=== PATIENT | male | born 1990 | race African-American/Black ===

== ENCOUNTER 2016-05-25 15:30 | Emergency (ER) | payer OTHER ==
[~2016-05-25 15:30] MED LIST: FLUO20CA9 PO; MELO7.5S PO; TRAZO50TA PO
[2016-05-25 16:56] LABS: MEAN CORPUSCULAR HEMOGLOBIN 30.4 pg (27.0-33.0); MEAN CORPUSCULAR HGB CONC 33.6 g/dl (32.0-36.5); MEAN CORPUSCULAR VOLUME 90.4 fl (80.0-96.0); RED CELL DISTRIBUTION WIDTH 12.6 % (11.5-14.5); WHITE BLOOD COUNT 4.7 K/mm3 (4.0-10.0)
[2016-05-25 17:11] LABS: ALBUMIN 3.8 GM/DL (3.2-5.2); ALBUMIN/GLOBULIN RATIO 1.23 (1.00-1.93); ALKALINE PHOSPHATASE 76 U/L (45-117); ALT/SGPT 38 U/L (12-78); ANION GAP 6 MEQ/L (8-16); AST/SGOT 16 U/L (15-37); BILIRUBIN,DIRECT < 0.1 MG/DL (0.0-0.2); BILIRUBIN,TOTAL 0.2 MG/DL (0.2-1.0); BLOOD UREA NITROGEN 10 MG/DL (7-18); CALCIUM LEVEL 8.7 MG/DL (8.5-10.1); CARBON DIOXIDE LEVEL 31 MEQ/L (21-32); CHLORIDE LEVEL 107 MEQ/L (98-107); CREATININE FOR GFR 0.88 MG/DL (0.70-1.30); GLOMERULAR FILTRATION RATE > 60.0 (>60); GLUCOSE, FASTING 91 MG/DL (70-105); SODIUM LEVEL 144 MEQ/L (136-145); TOTAL PROTEIN 6.9 GM/DL (6.4-8.2)
[2016-05-25 17:13] LABS: AMPHETAMINES LEVEL URINE NEGATIVE (NEGATIVE); BENZODIAZEPINES URINE NEGATIVE (NEGATIVE); COCAINE METABOLITE URINE NEGATIVE (NEGATIVE); CONTROL LINE INT CTR LINE PRESENT; METHADONE URINE NEGATIVE (NEGATIVE); OPIATES URINE NEGATIVE (NEGATIVE); TRICYCLIC ANTIDEPRESS URINE NEGATIVE (NEGATIVE)
--- NOTE | 2016-05-25 18:24 | EDDOCDS ---
Nurse's Notes [facility] Name: Colt Ricardo Age: 25 yrs Sex: Male : 1990 Arrival Date: 05/25/2016 Time: 15:30 Bed [facility] Private MD: MDEmperatriz HENDRIX Diagnosis: Adjustment disorder with disturbance of conduct Presentation: 05/25 15:35 Presenting complaint: Patient states: suicidal thoughts for years worsens with stress. srm stress in general brings it on. Mental Health Triage Level: Level 2: The patient displays active suicidal ideations. Adult Sepsis Screening: The patient does not have new or worsening altered mentation. Patient's respiratory rate is less than 22. Systolic blood pressure is greater than 100. Patient has a qSOFA score of 0- Negative Sepsis Screen. Suicide/Homicide risk assessment- The patient admits to and/or has been reported to be having suicidal ideations. The patient reports that he/she has not been admitted to an inpatient mental health facility in the last 30 days. The patient reports that he/she does not have a recent or current history of substance abuse. The patient reports that he/she has a prior history of suicide attempt and/or organized plan. The patient reports that he/she has experienced a significant life altering event in the last 30 days. 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 Transition of care: patient was not received from another setting of care. 15:35 Acuity: NAVA Level 3 srm 15:35 Method Of Arrival: Walkin/Carried/Asstd srm 15:38 Red Flag criteria, patient assessed and taken directly to a bed. [facility] Triage Assessment: 15:37 General: Appears in no apparent distress, Behavior is appropriate for age, cooperative. srm Pain: Location: chronic left shoulderpain Pain currently is 5 out of 10 on a pain scale. HIV screening NA for this visit Offered previously. Historical: - Allergies: no known allergies; - Home Meds: 1. Prozac Unknown Oral ran out 1-2 days ago 2. Nexium Unknown Oral once daily - PMHx: Depression; left shoulder pain; GERD; - PSHx: left shoulder; - Social history: Smoking status: Patient uses tobacco products, current some day smoker. No barriers to communication noted, The patient speaks fluent Mauritian, Speaks appropriately for age. - Family history: No immediate family members are acutely ill. - : The pt / caregiver states he / she is not on anticoagulants. Home medication list is obtained from the patient. - Exposure Risk Screening:: None identified. Screenin:42 Screening information is obtained from the patient. Fall risk: No risks identified. mb9 Assistance ADL's: requires no assistance with activities of daily living. Abuse/DV Screen: The patient / caregiver reports he/she is: not in a situation that causes fear, pain or injury. Nutritional screening: No deficits noted. Advance Directives: There is no active DNR order. home support is adequate. Assessment: 15:42 General: Appears in no apparent distress, Behavior is appropriate for age, cooperative, mb9 pt states, "Caroline been depressed and stressed out lately and I'm having suicidal thoughts". pt denies a plan. pt reports a previous suicide attempt with an overdose of pills. pt reports multiple stressors. 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 . Pain: Denies pain. Respiratory: Airway is patent Respiratory effort is even, unlabored, Breath sounds are clear bilaterally. 16:45 Reassessment: Patient appears in no apparent distress at this time. General: Behavior mb9 is appropriate for age, cooperative. General: security observing. . Pain: Denies pain. 18:22 Reassessment: Patient appears in no apparent distress at this time. General: Appears in mb9 no apparent distress, Behavior is appropriate for age, cooperative. Pain: Denies pain. Respiratory: Airway is patent Respiratory effort is even, unlabored. 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 [facility] Behavioral Health: The patient is not an established patient of [facility] Behavioral Health. 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 The patient was referred for evaluation because stress related to his impending separation & what he describes as his unit 'giving him problems'. Subjective: The patients chief complaint is "Just a lot of stress right now. I had some suicidal thoughts earlier, but nothing I was planning or anything like that". Delusions are denied. Patient's mood is dysphoric. Hallucinations are denied. Patient reports having a 4 year h/o service, with no combat exposure. He states that he spent a year in [place] & 6 months in [place], both of which were enjoyable. 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 He states that he has appointments to complete, as well as final college courses between now & then, however his unit suddenly told him that he was going to have CQ Duty x 24 hours today. He describes feeling like his unit is creating problems (such as the CQ Duty) for him & has been doing so for a couple of months, as his ETA has approached. He used the example of his being refused leave to go home over [place] to see his 4 y/o daughter, which angered his daughter's mother. He states that she is still angry with his for missing [place] with the child again. He says that he has "Just been feeling stressed about all of this" over the last couple of weeks, along with some fleeting SI earlier today. He denies having any SI now & has been future oriented throughout the interview. He denies having any plan or intent earlier, when the thoughts were briefly present. 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 His escort has confirmed that if D/C, there will be staff to check on him frequently throughout the weekend & will arrange for his follow up on Friday. Mental Health history: depression, sleep disturbance, suicide gesture by ibuprofen ingesting, shortly after enlisting in 2012 Mental Health Admissions: 2012 (? location) & 2016: [facility] Current Outpatient Mental Health Services: Patient states that he cleared from [facility] a week ago. Current living environment is The patient currently lives in a [facility]. Patient presents to Emergency Department with the following symptoms within the past 2 weeks: depressed mood, relational problem, sleep disturbance - erratic suicidal ideation with no plan. Mental status exam: Patients appearance is appropriate, Patient's behavior is cooperative, Speech is normal. Affect is restricted. Mood is dysphoric. Hallucinations are denied. Appetite is normal. Memory is good. Energy level is normal. Content of thought is normal. Thought process is intact. Cognitive level is oriented to person, place, time and situation Patient's insight is good. Judgement is good. Rapport with interviewer is good. Suicidal Ideation is denied. Homicidal ideation is denied. Disposition: Medically cleared for disposition by Lexii Campbell MD Psychiatric Consult is deferred per ED physician, Dr Mendenhall. The patient has a safe destination which is back to [place] with [facility]. [facility] Admission Criteria: Not Applicable. Vital Signs: 15:32 BP 172 / 95; Pulse 91; Resp 18 S; Temp 99.0(O); Pulse Ox 100% on R/A; Weight 86.18 kg gr2 (R); Height 5 ft. 8 in. (172.72 cm) (R); Pain 0/10; 18:22 BP 142 / 94; Pulse 69; Resp 18; Temp 97.3; Pulse Ox 100% ; mb9 15:32 Body Mass Index 28.89 (86.18 kg, 172.72 cm) gr2 Vitals: 15:32 Log In Time: May 25, 2016 at 15:32. RN notified that patient meets Red Flag gr2 criteria. ED Course: 15:32 Patient visited by Francisca Kearney. gr2 15:32 [facility] is Private Physician. gr2 15:32 Patient moved to Waiting gr2 15:34 Patient visited by Francisca Kearney. gr2 15:36 Triage Initiated srm 15:38 Patient moved to [facility] srm 15:42 The patient / caregiver is instructed regarding the plan of care and ED course. Patient mb9 has correct armband on for positive identification. Placed in psych safe attire. transportation worker with pt. 15:48 Patient visited by Jef Bolanos. dpm 15:49 Pt greeted and oriented to ED. Patient advised of names of staff involved in care, dpm location of call zendejas, wait times and NPO status. Security observing. Property removed, inventory done, secured in belongings bag- placed in locked locker. Placed in locker 3. Psych Safety Check: Location: Psych Room. Visual Assessment: Cooperative. 16:05 Patient visited by Jef Bolanos. dpm 16:17 Patient visited by Jef Bolanos. dpm 16:22 Lexii Campbell MD is Attending Physician. sd1 16:22 Patient visited by Lexii Campbell MD. sd1 16:33 Patient visited by Jef Bolanos. dpm 16:45 Patient visited by Jef Bolanos. dpm 16:56 [facility] Payment Agreement was scanned into [employer] and attached to record. gb 16:56 Drug Eval Toxicology ED Only Sent. dpm 17:00 Patient visited by Jef Bolanos. dpm 17:14 Patient visited by Jef Bolanos. dpm 17:21 Patient visited by Sharif Eaton PSA. jl 17:29 Patient visited by Jef Bolanos. dpm 17:35 [facility] is Referral Physician. sd1 17:42 Patient visited by Jef Bolanos. dpm 17:57 Patient visited by Jef Bolanos. dpm 18:22 No IV's were initiated during this patient's visit. No procedures done that require mb9 assistance. Order Results: Lab Order: Acetaminophen Level; SPEC'M 05/25/16 16:32 Test: ACETAMINOPHEN LEVEL; Value: < 2.0; Range: 10.0-30.0; Abnormal: Below low normal; Units: UG/ML; Status: F Lab Order: Basic Metabolic Profile; SPEC'M 05/25/16 16:32 Test: GLUCOSE, FASTING; Value: 91; Range: 70-105; Units: MG/DL; Status: F Test: BLOOD UREA NITROGEN; Value: 10; Range: 7-18; Units: MG/DL; Status: F Test: CREATININE FOR GFR; Value: 0.88; Range: 0.70-1.30; Units: MG/DL; Status: F Test: GLOMERULAR FILTRATION RATE; Value: > 60.0; Range: >60; Status: F Test: SODIUM LEVEL; Value: 144; Range: 136-145; Units: MEQ/L; Status: F Test: POTASSIUM SERUM; Value: 4.0; Range: 3.5-5.1; Units: MEQ/L; Status: F Test: CHLORIDE LEVEL; Value: 107; Range: 98-107; Units: MEQ/L; Status: F Test: CARBON DIOXIDE LEVEL; Value: 31; Range: 21-32; Units: MEQ/L; Status: F Test: ANION GAP; Value: 6; Range: 8-16; Abnormal: Below low normal; Units: MEQ/L; Status: F Test: CALCIUM LEVEL; Value: 8.7; Range: 8.5-10.1; Units: MG/DL; Status: F Test Note: ; Units are mL/min/1.73 m2 Chronic Kidney Disease Staging per NKF: Stage I & II GFR >=60 Normal to Mildly Decreased Stage III GFR 30-59 Moderately Decreased Stage IV GFR 15-29 Severely Decreased Stage V GFR <15 Very Little GFR Left ESRD GFR <15 on CHECK SCALER Lab Order: Complete Blood Count; SPEC'M 05/25/16 16:32 Test: WHITE BLOOD COUNT; Value: 4.7; Range: 4.0-10.0; Units: K/mm3; Status: F Test: RED BLOOD COUNT; Value: 4.72; Range: 4.30-6.10; Units: M/mm3; Status: F Test: HEMOGLOBIN; Value: 14.4; Range: 14.0-18.0; Units: g/dl; Status: F Test: HEMATOCRIT; Value: 42.7; Range: 42.0-52.0; Units: %; Status: F Test: MEAN CORPUSCULAR VOLUME; Value: 90.4; Range: 80.0-96.0; Units: fl; Status: F Test: MEAN CORPUSCULAR HEMOGLOBIN; Value: 30.4; Range: 27.0-33.0; Units: pg; Status: F Test: MEAN CORPUSCULAR HGB CONC; Value: 33.6; Range: 32.0-36.5; Units: g/dl; Status: F Test: RED CELL DISTRIBUTION WIDTH; Value: 12.6; Range: 11.5-14.5; Units: %; Status: F Test: PLATELET COUNT, AUTOMATED; Value: 238; Range: 150-450; Units: k/mm3; Status: F Lab Order: Drug Eval Toxicology ED Only; SPEC'05/25/16 16:52 Test: AMPHETAMINES LEVEL URINE; Value: NEGATIVE; Range: NEGATIVE; Status: F Test: BARBITURATES URINE; Value: NEGATIVE; Range: NEGATIVE; Status: F Test: BENZODIAZEPINES URINE; Value: NEGATIVE; Range: NEGATIVE; Status: F Test: CANNABINOIDS URINE; Value: POSITIVE; Range: NEGATIVE; Abnormal: Above high normal; Status: F Test: COCAINE METABOLITE URINE; Value: NEGATIVE; Range: NEGATIVE; Status: F Test: METHADONE URINE; Value: NEGATIVE; Range: NEGATIVE; Status: F Test: OPIATES URINE; Value: NEGATIVE; Range: NEGATIVE; Status: F Test: TRICYCLIC ANTIDEPRESS URINE; Value: NEGATIVE; Range: NEGATIVE; Status: F Test Note: ; FALSE POSITIVE RESULTS CAN BE CAUSED BY THE USE OF PANTOPRAZOLE (PROTONIX). Lab Order: Ethyl Alcohol (ethanol); [facility] 05/25/16 16:32 Test: ETHYL ALCOHOL (ETHANOL); Value: < 0.003; Range: 0.000-0.010; Units: %; Status: F Lab Order: Liver Profile; [facility] 05/25/16 16:32 Test: AST/SGOT; Value: 16; Range: 15-37; Units: U/L; Status: F Test: ALT/SGPT; Value: 38; Range: 12-78; Units: U/L; Status: F Test: ALKALINE PHOSPHATASE; Value: 76; Range: 45-117; Units: U/L; Status: F Test: BILIRUBIN,TOTAL; Value: 0.2; Range: 0.2-1.0; Units: MG/DL; Status: F Test: BILIRUBIN,DIRECT; Value: < 0.1; Range: 0.0-0.2; Units: MG/DL; Status: F Test: TOTAL PROTEIN; Value: 6.9; Range: 6.4-8.2; Units: GM/DL; Status: F Test: ALBUMIN; Value: 3.8; Range: 3.2-5.2; Units: GM/DL; Status: F Test: ALBUMIN/GLOBULIN RATIO; Value: 1.23; Range: 1.00-1.93; Status: F Lab Order: Salicylate Level; [facility] 05/25/16 16:32 Test: SALICYLATE LEVEL; Value: < 1.7; Range: 5.0-30.0; Abnormal: Below low normal; Units: MG/DL; Status: F Lab Order: Thyroid Stimulating Hormone; [facility] 05/25/16 16:32 Test: THYROID STIMULATING HORMONE; Value: 0.426; Range: 0.358-3.740; Units: uIU/ML; Status: F Outcome: 17:36 Discharge ordered by Provider. sd1 18:22 Discharge Assessment: Patient awake, alert and oriented x 3. No cognitive and/or mb9 functional deficits noted. Patient verbalized understanding of disposition instructions. patient administered narcotics - no. The following High Risk Discharge criteria are identified: None. Discharged to home ambulatory. Condition: good Condition: stable Condition: improved. Discharge instructions given to patient, Instructed on discharge instructions, Demonstrated understanding of instructions, Pt was receptive of discharge instructions/ teaching. No special radiology studies were completed. 18:23 Patient left the ED. mb9 Signatures: Lexii Campbell MD MD sd1 Delmy Cadena, RN RN srm Uma, Sharif, PSA PSA jl Lyla Giraldo, Reg Reg Jef Rogers dpm, [place] 2 Ryan Butcher,RN RN mb9 MTDGeovanny
--- NOTE | 2016-05-25 18:24 | EDDOCDS ---
Physician Documentation [facility] Name: Colt Ricardo Age: 25 yrs Sex: Male : 1990 Arrival Date: 05/25/2016 Time: 15:30 Bed [facility] Private MD: Emperatriz JUAREZ Disposition: 05/25/16 17:36 Discharged to Home/Self Care. Impression: Adjustment disorder with disturbance of conduct. - Condition is Stable. - Discharge Instructions: Adjustment Disorder. - Medication Reconciliation, Local Pharmacy Hours form. - Follow up: Emperatriz Abdi, Behavioral Health; When: Friday. - Problem is new. - Symptoms have improved. Historical: - Allergies: no known allergies; - Home Meds: 1. Prozac Unknown Oral ran out 1-2 days ago 2. Nexium Unknown Oral once daily - PMHx: Depression; left shoulder pain; GERD; - PSHx: left shoulder; - Social history: Smoking status: Patient uses tobacco products, current some day smoker. No barriers to communication noted, The patient speaks fluent Tajik, Speaks appropriately for age. - Family history: No immediate family members are acutely ill. - : The pt / caregiver states he / she is not on anticoagulants. Home medication list is obtained from the patient. - Exposure Risk Screening:: None identified. Vital Signs: 05/25 15:32 BP 172 / 95; Pulse 91; Resp 18 S; Temp 99.0(O); Pulse Ox 100% on R/A; Weight 86.18 kg / gr2 189.99 lbs (R); Height 5 ft. 8 in. (172.72 cm) (R); Pain 0/10; 18:22 BP 142 / 94; Pulse 69; Resp 18; Temp 97.3; Pulse Ox 100% ; mb9 15:32 Body Mass Index 28.89 (86.18 kg, 172.72 cm) gr2 MDM: 15:47 REGULAR DIET PLASTIC MORALES+DIET ordered. EDMS 16:09 Consult PFS/PSA/Technologist Infectious Disease ordered. sd1 16:09 Consult PFS/PSA/Technologist Infectious Disease: Patient's case requires discussion with on-call sd1 Psychiatrist ordered. 16:09 PSA/PFS to call Nursing Managed Care Provider, to enter patient data on [place] Safe Act if patient sd1 involuntarily admitted or transferred for SI or HI ordered. 16:09 Confirm accurate psychiatric medication list and times of last dosage ordered. sd1 16:09 Detain Pt Until Medically/PFS Cleared ordered. sd1 16:09 Acetaminophen Level Ordered. EDMS 16:09 Basic Metabolic Profile Ordered. EDMS 16:09 Complete Blood Count Ordered. EDMS 16:09 Drug Eval Toxicology ED Only Ordered. EDMS 16:09 Ethyl Alcohol (ethanol) Ordered. EDMS 16:09 Liver Profile Ordered. EDMS 16:09 Salicylate Level Ordered. EDMS 16:09 Thyroid Stimulating Hormone Ordered. EDMS 16:55 Financial registration complete. gb 16:56 [facility] Payment Agreement was scanned into [employer] and attached to record. gb 17:14 Acetaminophen Level Reviewed. sd1 17:14 Basic Metabolic Profile Reviewed. sd1 17:14 Drug Eval Toxicology ED Only Reviewed. sd1 17:14 Salicylate Level Reviewed. sd1 17:14 Complete Blood Count Reviewed. sd1 17:14 Ethyl Alcohol (ethanol) Reviewed. sd1 17:14 Liver Profile Reviewed. sd1 17:14 Thyroid Stimulating Hormone Reviewed. sd1 Signatures: Dispatcher [employer] EDDE Lexii Campbell MD MD sd1 Delmy Cadena, RN RN srm Lyla Giraldo, Reg Reg gb Ryan Butcher,RN RN mb9 The chart was reviewed and I authenticate all verbal orders and agree with the evaluation and treatment provided.Attachments: 16:56 [facility] Payment Agreement gb MTDD
--- NOTE | 2016-05-27 19:25 | EDDOCDS ---
Physician Documentation [facility] Name: Colt Ricardo Age: 25 yrs Sex: Male : 1990 Arrival Date: 05/25/2016 Time: 15:30 Bed [facility] Private MD: Emperatriz JUAREZ Disposition: 05/25/16 17:36 Discharged to Home/Self Care. Impression: Adjustment disorder with disturbance of conduct. - Condition is Stable. - Discharge Instructions: Adjustment Disorder. - Medication Reconciliation, Local Pharmacy Hours form. - Follow up: Emperatriz Abdi, Behavioral Health; When: Friday. - Problem is new. - Symptoms have improved. Historical: - Allergies: no known allergies; - Home Meds: 1. Prozac Unknown Oral ran out 1-2 days ago 2. Nexium Unknown Oral once daily - PMHx: Depression; left shoulder pain; GERD; - PSHx: left shoulder; - Social history: Smoking status: Patient uses tobacco products, current some day smoker. No barriers to communication noted, The patient speaks fluent Kinyarwanda, Speaks appropriately for age. - Family history: No immediate family members are acutely ill. - : The pt / caregiver states he / she is not on anticoagulants. Home medication list is obtained from the patient. - Exposure Risk Screening:: None identified. Vital Signs: 05/25 15:32 BP 172 / 95; Pulse 91; Resp 18 S; Temp 99.0(O); Pulse Ox 100% on R/A; Weight 86.18 kg / gr2 189.99 lbs (R); Height 5 ft. 8 in. (172.72 cm) (R); Pain 0/10; 18:22 BP 142 / 94; Pulse 69; Resp 18; Temp 97.3; Pulse Ox 100% ; mb9 15:32 Body Mass Index 28.89 (86.18 kg, 172.72 cm) gr2 MDM: 15:47 REGULAR DIET PLASTIC MORALES+DIET ordered. EDMS 16:09 Consult PFS/PSA/Float Operator ordered. sd1 16:09 Consult PFS/PSA/Float Operator: Patient's case requires discussion with on-call sd1 Psychiatrist ordered. 16:09 PSA/PFS to call Nursing Popcorn Vendor, to enter patient data [place] Safe Act if patient sd1 involuntarily admitted or transferred for SI or HI ordered. 16:09 Confirm accurate psychiatric medication list and times of last dosage ordered. sd1 16:09 Detain Pt Until Medically/PFS Cleared ordered. sd1 16:09 Acetaminophen Level Ordered. EDMS 16:09 Basic Metabolic Profile Ordered. EDMS 16:09 Complete Blood Count Ordered. EDMS 16:09 Drug Eval Toxicology ED Only Ordered. EDMS 16:09 Ethyl Alcohol (ethanol) Ordered. EDMS 16:09 Liver Profile Ordered. EDMS 16:09 Salicylate Level Ordered. EDMS 16:09 Thyroid Stimulating Hormone Ordered. EDMS 16:55 Financial registration complete. gb 16:56 [facility] Payment Agreement was scanned into [facility] and attached to record. gb 17:14 Acetaminophen Level Reviewed. sd1 17:14 Basic Metabolic Profile Reviewed. sd1 17:14 Drug Eval Toxicology ED Only Reviewed. sd1 17:14 Salicylate Level Reviewed. sd1 17:14 Complete Blood Count Reviewed. sd1 17:14 Ethyl Alcohol (ethanol) Reviewed. sd1 17:14 Liver Profile Reviewed. sd1 17:14 Thyroid Stimulating Hormone Reviewed. sd1 05/26 12:50 T-Sheet-- Draft Copy was scanned into [facility] and attached to record. gb Signatures: Dispatcher [employer] Lexii Montoya MD MD sd1 Delmy Cadena, RN RN [facility] Lyla Giraldo, Jerry Reg gb Ryan Butcher,RN RN mb9 The chart was reviewed and I authenticate all verbal orders and agree with the evaluation and treatment provided.Attachments: 05/25 16:56 [facility] Payment Agreement gb 05/26 12:50 T-Sheet-- Draft Copy gb Chart Complete MTDD
--- NOTE | 2016-05-27 19:25 | EDDOCDS ---
Physician Documentation [facility] Name: Colt Ricardo Age: 25 yrs Sex: Male : 1990 Arrival Date: 05/25/2016 Time: 15:[address] [facility] Private MD: Emperatriz JUAREZ Disposition: 05/25/16 17:36 Discharged to Home/Self Care. Impression: Adjustment disorder with disturbance of conduct. - Condition is Stable. - Discharge Instructions: Adjustment Disorder. - Medication Reconciliation, Local Pharmacy Hours form. - Follow up: Emperatriz Abdi, Behavioral Health; When: Friday. - Problem is new. - Symptoms have improved. Historical: - Allergies: no known allergies; - Home Meds: 1. Prozac Unknown Oral ran out 1-2 days ago 2. Nexium Unknown Oral once daily - PMHx: Depression; left shoulder pain; GERD; - PSHx: left shoulder; - Social history: Smoking status: Patient uses tobacco products, current some day smoker. No barriers to communication noted, The patient speaks fluent Divehi, Speaks appropriately for age. - Family history: No immediate family members are acutely ill. - : The pt / caregiver states he / she is not on anticoagulants. Home medication list is obtained from the patient. - Exposure Risk Screening:: None identified. Vital Signs: 05/25 15:32 BP 172 / 95; Pulse 91; Resp 18 S; Temp 99.0(O); Pulse Ox 100% on R/A; Weight 86.18 kg / gr2 189.99 lbs (R); Height 5 ft. 8 in. (172.72 cm) (R); Pain 0/10; 18:22 BP 142 / 94; Pulse 69; Resp 18; Temp 97.3; Pulse Ox 100% ; mb9 15:32 Body Mass Index 28.89 (86.18 kg, 172.72 cm) gr2 MDM: 15:47 REGULAR DIET PLASTIC MORALES+DIET ordered. EDMS 16:09 Consult PFS/PSA/Cylinder Honer ordered. sd1 16:09 Consult PFS/PSA/Cylinder Honer: Patient's case requires discussion with on-call sd1 Psychiatrist ordered. 16:09 PSA/PFS to call Nursing Power Saw Mechanic, to enter patient data on [place] Safe Act if patient sd1 involuntarily admitted or transferred for SI or HI ordered. 16:09 Confirm accurate psychiatric medication list and times of last dosage ordered. sd1 16:09 Detain Pt Until Medically/PFS Cleared ordered. sd1 16:09 Acetaminophen Level Ordered. EDMS 16:09 Basic Metabolic Profile Ordered. EDMS 16:09 Complete Blood Count Ordered. EDMS 16:09 Drug Eval Toxicology ED Only Ordered. EDMS 16:09 Ethyl Alcohol (ethanol) Ordered. EDMS 16:09 Liver Profile Ordered. EDMS 16:09 Salicylate Level Ordered. EDMS 16:09 Thyroid Stimulating Hormone Ordered. EDMS 16:55 Financial registration complete. gb 16:56 [facility] Payment Agreement was scanned into [employer] and attached to record. gb 17:14 Acetaminophen Level Reviewed. sd1 17:14 Basic Metabolic Profile Reviewed. sd1 17:14 Drug Eval Toxicology ED Only Reviewed. sd1 17:14 Salicylate Level Reviewed. sd1 17:14 Complete Blood Count Reviewed. sd1 17:14 Ethyl Alcohol (ethanol) Reviewed. sd1 17:14 Liver Profile Reviewed. sd1 17:14 Thyroid Stimulating Hormone Reviewed. sd1 05/26 12:50 T-Sheet-- Draft Copy was scanned into [employer] and attached to record. gb Signatures: Dispatcher [employer] Lexii Montoya MD MD sd1 Delmy Cadena, RN RN [facility] Lyla Giraldo, Jerry Reg gb Ryan Butcher,RN RN mb9 The chart was reviewed and I authenticate all verbal orders and agree with the evaluation and treatment provided.Attachments: 05/25 16:56 [facility] Payment Agreement gb 05/26 12:50 T-Sheet-- Draft Copy gb Chart Complete MTDD
--- NOTE | 2016-05-27 19:25 | EDDOCDS ---
Nurse's Notes [facility] Name: Colt Ricardo Age: 25 yrs Sex: Male : 1990 Arrival Date: 05/25/2016 Time: 15:30 Bed [facility] Private MD: TXEmperatriz HENDRIX Diagnosis: Adjustment disorder with disturbance of conduct Presentation: 05/25 15:35 Presenting complaint: Patient states: suicidal thoughts for years worsens with stress. srm stress in general brings it on. Mental Health Triage Level: Level 2: The patient displays active suicidal ideations. Adult Sepsis Screening: The patient does not have new or worsening altered mentation. Patient's respiratory rate is less than 22. Systolic blood pressure is greater than 100. Patient has a qSOFA score of 0- Negative Sepsis Screen. Suicide/Homicide risk assessment- The patient admits to and/or has been reported to be having suicidal ideations. The patient reports that he/she has not been admitted to an inpatient mental health facility in the last 30 days. The patient reports that he/she does not have a recent or current history of substance abuse. The patient reports that he/she has a prior history of suicide attempt and/or organized plan. The patient reports that he/she has experienced a significant life altering event in the last 30 days. 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 Transition of care: patient was not received from another setting of care. 15:35 Acuity: NAVA Level 3 srm 15:35 Method Of Arrival: Walkin/Carried/Asstd srm 15:38 Red Flag criteria, patient assessed and taken directly to a bed. [facility] Triage Assessment: 15:37 General: Appears in no apparent distress, Behavior is appropriate for age, cooperative. srm Pain: Location: chronic left shoulderpain Pain currently is 5 out of 10 on a pain scale. HIV screening NA for this visit Offered previously. Historical: - Allergies: no known allergies; - Home Meds: 1. Prozac Unknown Oral ran out 1-2 days ago 2. Nexium Unknown Oral once daily - PMHx: Depression; left shoulder pain; GERD; - PSHx: left shoulder; - Social history: Smoking status: Patient uses tobacco products, current some day smoker. No barriers to communication noted, The patient speaks fluent Maldivian, Speaks appropriately for age. - Family history: No immediate family members are acutely ill. - : The pt / caregiver states he / she is not on anticoagulants. Home medication list is obtained from the patient. - Exposure Risk Screening:: None identified. Screenin:42 Screening information is obtained from the patient. Fall risk: No risks identified. mb9 Assistance ADL's: requires no assistance with activities of daily living. Abuse/DV Screen: The patient / caregiver reports he/she is: not in a situation that causes fear, pain or injury. Nutritional screening: No deficits noted. Advance Directives: There is no active DNR order. home support is adequate. Assessment: 15:42 General: Appears in no apparent distress, Behavior is appropriate for age, cooperative, mb9 pt states, "Caroline been depressed and stressed out lately and I'm having suicidal thoughts". pt denies a plan. pt reports a previous suicide attempt with an overdose of pills. pt reports multiple stressors. 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 . Pain: Denies pain. Respiratory: Airway is patent Respiratory effort is even, unlabored, Breath sounds are clear bilaterally. 16:45 Reassessment: Patient appears in no apparent distress at this time. General: Behavior mb9 is appropriate for age, cooperative. General: security observing. . Pain: Denies pain. 18:22 Reassessment: Patient appears in no apparent distress at this time. General: Appears in mb9 no apparent distress, Behavior is appropriate for age, cooperative. Pain: Denies pain. Respiratory: Airway is patent Respiratory effort is even, unlabored. 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 [facility] Behavioral Health: The patient is not an established patient of [facility] Behavioral Health. 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 The patient was referred for evaluation because stress related to his impending separation & what he describes as his unit 'giving him problems'. Subjective: The patients chief complaint is "Just a lot of stress right now. I had some suicidal thoughts earlier, but nothing I was planning or anything like that". Delusions are denied. Patient's mood is dysphoric. Hallucinations are denied. Patient reports having a 4 year h/o service, with no combat exposure. He states that he spent a year in [place] & 6 months in [place], both of which were enjoyable. 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 He states that he has appointments to complete, as well as final college courses between now & then, however his unit suddenly told him that he was going to have CQ Duty x 24 hours today. He describes feeling like his unit is creating problems (such as the CQ Duty) for him & has been doing so for a couple of months, as his ETA has approached. He used the example of his being refused leave to go home over [place] to see his 4 y/o daughter, which angered his daughter's mother. He states that she is still angry with his for missing [place] with the child again. He says that he has "Just been feeling stressed about all of this" over the last couple of weeks, along with some fleeting SI earlier today. He denies having any SI now & has been future oriented throughout the interview. He denies having any plan or intent earlier, when the thoughts were briefly present. 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 His escort has confirmed that if D/C, there will be staff to check on him frequently throughout the weekend & will arrange for his follow up on Friday. Mental Health history: depression, sleep disturbance, suicide gesture by ibuprofen ingesting, shortly after enlisting in 2012 Mental Health Admissions: 2012 (? location) & 2016: [facility] Current Outpatient Mental Health Services: Patient states that he cleared from [facility] a week ago. Current living environment is The patient currently lives in a [email or web address]. Patient presents to Emergency Department with the following symptoms within the past 2 weeks: depressed mood, relational problem, sleep disturbance - erratic suicidal ideation with no plan. Mental status exam: Patients appearance is appropriate, Patient's behavior is cooperative, Speech is normal. Affect is restricted. Mood is dysphoric. Hallucinations are denied. Appetite is normal. Memory is good. Energy level is normal. Content of thought is normal. Thought process is intact. Cognitive level is oriented to person, place, time and situation Patient's insight is good. Judgement is good. Rapport with interviewer is good. Suicidal Ideation is denied. Homicidal ideation is denied. Disposition: Medically cleared for disposition by Lexii Campbell MD Psychiatric Consult is deferred per ED physician, Dr Mendenhall. The patient has a safe destination which is back to [place] [facility]. [facility] Admission Criteria: Not Applicable. Vital Signs: 15:32 BP 172 / 95; Pulse 91; Resp 18 S; Temp 99.0(O); Pulse Ox 100% on R/A; Weight 86.18 kg gr2 (R); Height 5 ft. 8 in. (172.72 cm) (R); Pain 0/10; 18:22 BP 142 / 94; Pulse 69; Resp 18; Temp 97.3; Pulse Ox 100% ; mb9 15:32 Body Mass Index 28.89 (86.18 kg, 172.72 cm) gr2 Vitals: 15:32 Log In Time: May 25, 2016 at 15:32. RN notified that patient meets Red Flag gr2 criteria. ED Course: 15:32 Patient visited by Francisca Kearney. gr2 15:32 [facility] is Private Physician. gr2 15:32 Patient moved to Waiting gr2 15:34 Patient visited by Francisca Kearney. gr2 15:36 Triage Initiated srm 15:38 Patient moved to [facility] srm 15:42 The patient / caregiver is instructed regarding the plan of care and ED course. Patient mb9 has correct armband on for positive identification. Placed in psych safe attire. systems requirements planner with pt. 15:48 Patient visited by Jef Bolanos. dpm 15:49 Pt greeted and oriented to ED. Patient advised of names of staff involved in care, dpm location of call zendejas, wait times and NPO status. Security observing. Property removed, inventory done, secured in belongings bag- placed in locked locker. Placed in locker 3. Psych Safety Check: Location: Psych Room. Visual Assessment: Cooperative. 16:05 Patient visited by Jef Bolanos. dpm 16:17 Patient visited by Jef Bolanos. dpm 16:22 Lexii Campbell MD is Attending Physician. sd1 16:22 Patient visited by Lexii Campbell MD. sd1 16:33 Patient visited by Jef Bolanos. dpm 16:45 Patient visited by Jef Bolanos. dpm 16:56 [facility] Payment Agreement was scanned into [employer] and attached to record. gb 16:56 Drug Eval Toxicology ED Only Sent. dpm 17:00 Patient visited by Jef Bolanos. dpm 17:14 Patient visited by Jef Bolanos. dpm 17:21 Patient visited by Sharif Eaton PSA. jl 17:29 Patient visited by Jef Bolanos. dpm 17:35 [facility] sd1 17:42 Patient visited by Jef Bolanos. dpm 17:57 Patient visited by Jef Bolanos. dpm 18:22 No IV's were initiated during this patient's visit. No procedures done that require mb9 assistance. 05/26 12:50 T-Sheet-- Draft Copy was scanned into [employer] and attached to record. Order Results: Lab Order: Acetaminophen Level; SPEC'M 05/25/16 16:32 Test: ACETAMINOPHEN LEVEL; Value: < 2.0; Range: 10.0-30.0; Abnormal: Below low normal; Units: UG/ML; Status: F Lab Order: Basic Metabolic Profile; SPEC'M 05/25/16 16:32 Test: GLUCOSE, FASTING; Value: 91; Range: 70-105; Units: MG/DL; Status: F Test: BLOOD UREA NITROGEN; Value: 10; Range: 7-18; Units: MG/DL; Status: F Test: CREATININE FOR GFR; Value: 0.88; Range: 0.70-1.30; Units: MG/DL; Status: F Test: GLOMERULAR FILTRATION RATE; Value: > 60.0; Range: >60; Status: F Test: SODIUM LEVEL; Value: 144; Range: 136-145; Units: MEQ/L; Status: F Test: POTASSIUM SERUM; Value: 4.0; Range: 3.5-5.1; Units: MEQ/L; Status: F Test: CHLORIDE LEVEL; Value: 107; Range: 98-107; Units: MEQ/L; Status: F Test: CARBON DIOXIDE LEVEL; Value: 31; Range: 21-32; Units: MEQ/L; Status: F Test: ANION GAP; Value: 6; Range: 8-16; Abnormal: Below low normal; Units: MEQ/L; Status: F Test: CALCIUM LEVEL; Value: 8.7; Range: 8.5-10.1; Units: MG/DL; Status: F Test Note: ; Units are mL/min/1.73 m2 Chronic Kidney Disease Staging per NKF: Stage I & II GFR >=60 Normal to Mildly Decreased Stage III GFR 30-59 Moderately Decreased Stage IV GFR 15-29 Severely Decreased Stage V GFR <15 Very Little GFR Left ESRD GFR <15 on OIL DIPPER Lab Order: Complete Blood Count; SPEC'M 05/25/16 16:32 Test: WHITE BLOOD COUNT; Value: 4.7; Range: 4.0-10.0; Units: K/mm3; Status: F Test: RED BLOOD COUNT; Value: 4.72; Range: 4.30-6.10; Units: M/mm3; Status: F Test: HEMOGLOBIN; Value: 14.4; Range: 14.0-18.0; Units: g/dl; Status: F Test: HEMATOCRIT; Value: 42.7; Range: 42.0-52.0; Units: %; Status: F Test: MEAN CORPUSCULAR VOLUME; Value: 90.4; Range: 80.0-96.0; Units: fl; Status: F Test: MEAN CORPUSCULAR HEMOGLOBIN; Value: 30.4; Range: 27.0-33.0; Units: pg; Status: F Test: MEAN CORPUSCULAR HGB CONC; Value: 33.6; Range: 32.0-36.5; Units: g/dl; Status: F Test: RED CELL DISTRIBUTION WIDTH; Value: 12.6; Range: 11.5-14.5; Units: %; Status: F Test: PLATELET COUNT, AUTOMATED; Value: 238; Range: 150-450; Units: k/mm3; Status: F Lab Order: Drug Eval Toxicology ED Only; SPEC'M 05/25/16 16:52 Test: AMPHETAMINES LEVEL URINE; Value: NEGATIVE; Range: NEGATIVE; Status: F Test: BARBITURATES URINE; Value: NEGATIVE; Range: NEGATIVE; Status: F Test: BENZODIAZEPINES URINE; Value: NEGATIVE; Range: NEGATIVE; Status: F Test: CANNABINOIDS URINE; Value: POSITIVE; Range: NEGATIVE; Abnormal: Above high normal; Status: F Test: COCAINE METABOLITE URINE; Value: NEGATIVE; Range: NEGATIVE; Status: F Test: METHADONE URINE; Value: NEGATIVE; Range: NEGATIVE; Status: F Test: OPIATES URINE; Value: NEGATIVE; Range: NEGATIVE; Status: F Test: TRICYCLIC ANTIDEPRESS URINE; Value: NEGATIVE; Range: NEGATIVE; Status: F Test Note: ; FALSE POSITIVE RESULTS CAN BE CAUSED BY THE USE OF PANTOPRAZOLE (PROTONIX). Lab Order: Ethyl Alcohol (ethanol); [facility] 05/25/16 16:32 Test: ETHYL ALCOHOL (ETHANOL); Value: < 0.003; Range: 0.000-0.010; Units: %; Status: F Lab Order: Liver Profile; [facility] 05/25/16 16:32 Test: AST/SGOT; Value: 16; Range: 15-37; Units: U/L; Status: F Test: ALT/SGPT; Value: 38; Range: 12-78; Units: U/L; Status: F Test: ALKALINE PHOSPHATASE; Value: 76; Range: 45-117; Units: U/L; Status: F Test: BILIRUBIN,TOTAL; Value: 0.2; Range: 0.2-1.0; Units: MG/DL; Status: F Test: BILIRUBIN,DIRECT; Value: < 0.1; Range: 0.0-0.2; Units: MG/DL; Status: F Test: TOTAL PROTEIN; Value: 6.9; Range: 6.4-8.2; Units: GM/DL; Status: F Test: ALBUMIN; Value: 3.8; Range: 3.2-5.2; Units: GM/DL; Status: F Test: ALBUMIN/GLOBULIN RATIO; Value: 1.23; Range: 1.00-1.93; Status: F Lab Order: Salicylate Level; [facility] 05/25/16 16:32 Test: SALICYLATE LEVEL; Value: < 1.7; Range: 5.0-30.0; Abnormal: Below low normal; Units: MG/DL; Status: F Lab Order: Thyroid Stimulating Hormone; [facility] 05/25/16 16:32 Test: THYROID STIMULATING HORMONE; Value: 0.426; Range: 0.358-3.740; Units: uIU/ML; Status: F Outcome: 05/25 17:36 Discharge ordered by Provider. sd1 18:22 Discharge Assessment: Patient awake, alert and oriented x 3. No cognitive and/or mb9 functional deficits noted. Patient verbalized understanding of disposition instructions. patient administered narcotics - no. The following High Risk Discharge criteria are identified: None. Discharged to home ambulatory. Condition: good Condition: stable Condition: improved. Discharge instructions given to patient, Instructed on discharge instructions, Demonstrated understanding of instructions, Pt was receptive of discharge instructions/ teaching. No special radiology studies were completed. 18:23 Patient left the ED. mb9 Signatures: Lexii Campbell MD MD sd1 Delmy Cadena, RN RN Sharif Jeff, JANNETH PSA Lyla Melchor, Reg Reg Jef Rogers dpm, [place] gr2 Ryan Butcher,RN RN mb9 Chart Complete [facility]
== END 2016-05-25 18:23 | disposition home or self-care (01) ==
LOC: M ED 15:30
DX: F43.20 Adjustment disorder, unspecified (principal); F32.9 Major depressive disorder, single episode, unspecified; M25.512 Pain in left shoulder; K21.9 Gastro-esophageal reflux disease without esophagitis; F17.200 Nicotine dependence, unspecified, uncomplicated; Z79.899 Other long term (current) drug therapy
CPT/HCPCS: 36415; 80048; 80076; 80306; 84443; 85027; 99284; G0480